=== PATIENT | male | born 1960 | race Caucasian/White ===

== ENCOUNTER 2019-12-24 07:24 | Day surgery (SDC) | payer BC ==
[2019-12-24] VITALS (332 sets, daily range): BP systolic 93–133; BP diastolic 66–89; PULSE 63–74; TEMP 97.4–97.9; O2SAT 83–100
[~2019-12-24] VITALS: Ht 172.7 cm; Wt 71.3 kg
[2019-12-24 08:31] LABS: HEMATOCRIT 39.3 % (42.0-52.0); HEMOGLOBIN 12.8 g/dl (13.5-18.0); MEAN CELL VOLUME 94 fl (80.0-100.0); MEAN CORPUSCULAR HEMOGLOBIN 31 pg (27.0-31.0); MEAN CORPUSCULAR HGB CONC 33 g/dl (33.0-37.0); MEAN PLATELET VOLUME 9.7 fl (7.4-10.4); PLATELET COUNT 254 K/mm3 (130-400); RED BLOOD COUNT 4.17 M/mm3 (4.20-5.60); REDCELL DISTRIBUTION WIDTH-CV 12.8 % (11.5-14.5)
[2019-12-24] MEDS ORDERED: ASPIRIN E.C. 8181 MG PO (08:34)
[2019-12-24] MEDS ORDERED: LEVOXYL0.125 MG PO (08:35)
[2019-12-24] MEDS ORDERED: TOPROL XL 25MG25 MG PO (08:36)
[2019-12-24] MEDS ORDERED: NITROSTAT0.4 MG/TAB SL (08:36)
[2019-12-24] MEDS ORDERED: PRIL40 PO (08:37)
[2019-12-24] MEDS ORDERED: PROAIR HFA0.09 MG/AC IH (08:38)
[2019-12-24] MEDS ORDERED: CRESTOR40 MG PO (08:38)
[2019-12-24 08:43] LABS: ALBUMIN 4.2 gm/dL (3.5-5.0); BILIRUBIN,TOTAL 0.4 mg/dL (0.0-1.0); CALCIUM 9.4 mg/dL (8.4-10.2); CHOLESTEROL RISK RATIO 4.1; CREATININE, serum 0.89 (0.66-1.25); POTASSIUM 4.4 mmol/L (3.4-5.0); TOTAL PROTEIN 7.9 gm/dL (6.4-8.2)
[2019-12-24 09:59] LABS: PROTHROMBIN TIME 11.7 SECONDS (9.7-12.8)
[2019-12-24 10:02] LABS: PARTIAL THROMBOPLASTIN TIME 34.9 SECONDS (26.0-37.0)
[2019-12-25] VITALS (190 sets, daily range): BP systolic 93–133; BP diastolic 71–87; PULSE 62–68; TEMP 97.4–98; O2SAT 88–100
[2019-12-25 05:57] LABS: BASO # 0.1 (0.0-0.2); BASO % 0.8 % (0.0-2.0); EOS # 0.3 (0.0-0.7); GRAN # 3.9 (1.4-6.5); GRAN % 64.6 % (42.2-75.2); HEMATOCRIT 37.9 % (42.0-52.0); HEMOGLOBIN 12.5 g/dl (13.5-18.0); LYMPH # 1.1 (1.2-3.4); LYMPH % 18.9 % (20.0-51.0); MEAN CELL VOLUME 94 fl (80.0-100.0); MEAN CORPUSCULAR HEMOGLOBIN 31 pg (27.0-31.0); MEAN CORPUSCULAR HGB CONC 33 g/dl (33.0-37.0); MONO # 0.6 (0.1-0.6); MONO % 10.4 % (1.7-9.3); PLATELET COUNT 230 K/mm3 (130-400); RED BLOOD COUNT 4.05 M/mm3 (4.20-5.60); REDCELL DISTRIBUTION WIDTH-CV 12.7 % (11.5-14.5)
[2019-12-25 06:12] LABS: CALCIUM 9.2 mg/dL (8.4-10.2); CREATININE, serum 0.86 (0.66-1.25); POTASSIUM 3.9 mmol/L (3.4-5.0)
[2019-12-25] MEDS ORDERED: EFFIENT10 MG PO (09:49)
== END 2019-12-25 10:57 | disposition home or self-care (01) ==
LOC: COL.CAR 07:24 → ICU 11:02 → COL.CAR 12-25 10:57
PROVIDERS: Internal Medicine Cardiovascular Disease
DX: I25.10 Atherosclerotic heart disease of native coronary artery without angina pectoris (principal); Z95.1 Presence of aortocoronary bypass graft; Z20.828 Contact with and (suspected) exposure to other viral communicable diseases; J43.8 Other emphysema; I73.9 Peripheral vascular disease, unspecified; I65.21 Occlusion and stenosis of right carotid artery; E78.5 Hyperlipidemia, unspecified; E03.9 Hypothyroidism, unspecified; F17.210 Nicotine dependence, cigarettes, uncomplicated; Z79.82 Long term (current) use of aspirin; Z79.899 Other long term (current) drug therapy
CPT/HCPCS: OP; C9600; J0583; J1644; J2250; J3010; Q9967

== ENCOUNTER 2022-06-29 11:01 | Day surgery (SDC) | payer BC ==
[~2022-06-29] VITALS: Ht 172.7 cm; Wt 73.0 kg
[~2022-06-29 11:01] MED LIST: ASPIRIN E.C. 8181 MG PO; CRESTOR40 MG PO; EFFIENT10 MG PO; LEVOXYL0.125 MG PO; NITROSTAT0.4 MG/TAB SL; PRIL40 PO; PROAIR HFA0.09 MG/AC IH; TOPROL XL 25MG25 MG PO
[2022-06-29 12:00] VITALS: BP 150/89; PULSE 63; TEMP 97.9
[2022-06-29] MEDS ORDERED: ANORO IH (12:11)
[2022-06-29] MEDS ORDERED: NORCO 325 MG-51 TAB PO (13:41)
[2022-06-29 14:25] VITALS: BP 130/77; PULSE 63; TEMP 97.1
[2022-06-29 14:40] VITALS: BP 121/77; PULSE 63
[2022-06-29 14:45] VITALS: BP 122/75; PULSE 64
--- NOTE | 2022-06-29 15:20 | NUR ---
1425-REPORT OBTAINED FROM TORRIE MCCLELLAN. PATIENT ARRIVED TO [facility] VIA STRETCHER, VITAL SIGNS TAKEN ON ARRIVAL. VSS. PATIENT ALERT AND ORIENTED. DENIES NAUSEA AND PAIN, DRESSING CDI WITH SCROTAL SLING IN PLACE. ICE PACK TO SITE. PATIENT'S FAMILY MEMBER BROUGHT TO BEDSIDE. PO INTAKE PROVIDED, PATIENT TOLERATING PO INTAKE WELL 1450- DISCHARGE INSTRUCTIONS REVIEWED WITH PT AND FAMILY, QUESTIONS INVITED. PATIENT DENIES NAUSEA/PAIN. 1455-PATIENT DRESSED INDEPENDENTLY. IV CATHETER SITE REMOVED, CATHETER TIP INTACT. PRESSURE HELD AND BANDAGE APPLIED. 1510-PATIENT DISCHARGED TO HOME VIA WHEELCHAIR, ACCOMPANIED BY FAMILY AND FRIEND. ALL BELONGINGS SENT WITH PT AT TIME OF DISCHARGE.
[2022-06-29 18:55] VITALS: BP 130/77; PULSE 64; TEMP 97
== END 2022-06-29 15:10 | disposition home or self-care (01) ==
LOC: SDCO 11:01
DX: N43.3 Hydrocele, unspecified (principal); F17.210 Nicotine dependence, cigarettes, uncomplicated
CPT/HCPCS: J0690; J1100; J2405; J2704; J3010; J7120